=== PATIENT | female | born 1985 | race Caucasian/White ===

== ENCOUNTER 2020-12-26 16:45 | Emergency (ER) | payer MEDICAID ==
[~2020-12-26] VITALS: Ht 154.9 cm; Wt 64.9 kg
[2020-12-26 16:51] VITALS: BP_SYST 132
--- NOTE | 2020-12-26 17:07 | NUR ---
AMBULATED TO BED 1
--- NOTE | 2020-12-26 17:07 | NUR ---
Pt. bib with c/o vaginal bleeding yesterday and again today, states blood bright red, denies any pain or cramping. Bleeding small amount not requiring use of pad. Per pt. , 1 2004 and 1 ectopic 2018 with an EDC of 07/15/2021.
--- NOTE | 2020-12-26 17:25 | NUR ---
GERTRUDE Sprague at bedside examining patient.
--- NOTE | 2020-12-26 17:27 | NUR ---
lab at bedside for blood draw
[2020-12-26 17:51] LABS: BASOPHILS # (AUTO) 0.1 K/uL (0.0-0.2); BASOPHILS % (AUTO) 0.7 % (0.0-2.0); EOSINOPHILS # (AUTO) 0.1 K/uL (0.0-0.4); EOSINOPHILS % (AUTO) 1.2 % (0.0-4.0); HEMATOCRIT 39.4 % (36-48); HEMOGLOBIN 13.4 g/dL (12.0-16.0); LYMPHOCYTES # (AUTO) 3.3 K/uL (1.0-5.5); LYMPHOCYTES % (AUTO) 34.8 % (20.5-51.5); MEAN CORPUSCULAR HEMOGLOBIN 30 pg (27-31); MEAN CORPUSCULAR HGB CONC 34 % (32-36); MEAN CORPUSCULAR VOLUME 88 fL (79.0-98.0); MONOCYTES # (AUTO) 0.7 K/uL (0.0-1.0); MONOCYTES % (AUTO) 7.1 % (1.7-9.3); NEUTROPHILS # (AUTO) 5.3 K/uL (1.8-7.7); NEUTROPHILS % (AUTO) 56.2 % (40.0-70.0); PLATELET COUNT (AUTO) 350 K/uL (130-430); RED BLOOD CELL COUNT(AUTO) 4.49 MIL/uL (4.2-6.2); RED CELL DISTRIBUTION WIDTH 13.8 % (9.0-15.0); WHITE BLOOD COUNT (AUTO) 9.4 K/uL (4.8-10.8)
--- NOTE | 2020-12-26 17:56 | NUR ---
to radiology for /S
[2020-12-26 18:10] LABS: INR 0.9 (0.8-1.2); PROTHROMBIN TIME 9.5 SECS (9.5-12.5)
--- NOTE | 2020-12-26 18:45 | NUR ---
Pt. back from radiology
--- NOTE | 2020-12-26 19:09 | NUR ---
report to Irais SMITH.
[2020-12-26 19:40] VITALS: BP_SYST 106
--- NOTE | 2020-12-26 19:41 | NUR ---
Patient given written and verbal discharge instructions and verbalizes understanding. ER MD discussed with patient the results and treatment provided. Patient in stable condition. ID arm band removed. No Rx given. Patient educated on pain management and to follow up with PMD. Pain scale 0/10. Opportunity for questions provided and answered. Medication side effect fact sheet provided.
== END 2020-12-26 19:40 | disposition home or self-care (01) ==
LOC: SED 16:45
DX: O03.9 Complete or unspecified spontaneous abortion without complication (principal); D25.9 Leiomyoma of uterus, unspecified
CPT/HCPCS: 36415; 76801; 76817; 81025; 84702; 85025; 85610-TC; 86900; 86901; 99284